=== PATIENT | female | born 1990 | race Caucasian/White ===

== ENCOUNTER 2017-10-05 22:00 | Emergency (ER) | payer MEDICAID, OTHER ==
--- NOTE | 2017-10-05 22:17 | EDPHY ---
H & P Stated Complaint: Urine dark in color. Time Seen by Provider: 10/05/17 22:16 HPI/ROS: CHIEF COMPLAINT: Discolored urine, pruritus HISTORY OF PRESENT ILLNESS: Previously healthy 27-year-old female noted her urine to change colors thumb 3 days ago. Home treatment consisted of drinking extra fluids to dilute things out however he continued remained odd colored. She described as a at [place] to brown colored. There has been no dysuria or frequency or pyuria. She also reports no back pain or flank pain or fevers or chills. No trauma. She has not been taking any medications such as peridium or azo. Furthermore this has never occurred to her before. As to the anemia which potentially uncovered she has never had problems related to that. She has also noted no easy bruising or bleeding. Two nights ago she felt so uncomfortable due to itching that she has take some Benadryl. She reports no overdose of Tylenol. She has had no exposure to potentially hepatotoxic drugs such as phenothiazines, barbiturates, tetracycline, INH, or narcotics. No antecedent sore throat or episode of mono or strep throat. She believes that she did receive her usual childhood vaccines as a preschooler however does not believe that she got the vaccination so that she would get as a middle Schooler due to lack of funds. Thus she would like received all of her 3 hepatitis-B vaccinations as an and toddler. REVIEW OF SYSTEMS: Constitutional: No fever, no chills. Eyes: No discharge, no jaundice. ENT: No sore throat. Cardiovascular: No chest pain, no palpitations. Respiratory: No cough, shortness of breath, or wheezing. Gastrointestinal: No nausea vomiting or diarrhea. No abdominal pain. Genitourinary: No hematuria or frequency. Musculoskeletal: No back pain. Skin: No rashes. Neurological: No headache. 10 point ROS otherwise negative Source: Patient Exam Limitations: No limitations - Personal History LMP (Females 10-55): Extended Cycle BCP/Inj - Medical/Surgical History Hx Asthma: No Hx Chronic Respiratory Disease: No Hx Diabetes: No Hx Cardiac Disease: No Hx Renal Disease: No Hx Cirrhosis: No Hx Alcoholism: No Hx HIV/AIDS: No Hx Splenectomy or Spleen Trauma: No - Family History Significant Family History: No pertinent family hx - Social History Smoking Status: Never smoked Alcohol Use: None Drug Use: None - Physical Exam Exam: General Appearance: Alert, no distress. Afebrile. Normal phonation. No respiratory distress. Eyes: Pupils equal and round no pallor or injection. No icterus ENT, Mouth: Mucous membranes moist Pharynx without erythema or exudate. TM Clear. Neck: No adenopathy. Supple. No JVD. Trachea in midline. No posterior adenopathy. Chest wall: Nontender to palpation. No crepitus. Cardiovascular: Regular rate and rhythm. Abdomen: Soft and nontender, no masses, bowel sounds normal. There is no hepatomegaly. Neurological: Ox3. No motor weakness. Sensation intact. Gait nl. Skin: Warm and dry, no rashes. Musculoskeletal: No joint swelling. Extremities: No edema. Homans sign negative. No cords. Psychiatric: Normal affect. Patient is oriented X 3. There is no agitation Constitutional: Initial Vital Signs Temperature (C) 37 C 10/05/17 22:20 Heart Rate 92 10/05/17 22:20 Respiratory Rate 14 10/05/17 22:20 Blood Pressure 133/78 H 10/05/17 22:20 O2 Sat (%) 96 10/05/17 22:20 O2 Delivery Mode Room Air Allergies/Adverse Reactions: Penicillins Allergy (Verified 10/05/17 22:21) Home Medications: Medication Instructions Recorded Nexplanon 10/05/17 Medical Decision Making ED Course/Re-evaluation: I went ahead and examined her urine myself in the laboratory. It is of a pinkish, brownish color - though clear Laboratory evaluation revealed the following: Anemia, normochromic, normocytic ALT 5 times normal at 252 AST somewhat elevated but not more so than the ALT Alkaline phosphatase elevated, though bilirubin is normal I went over the potential causes of a hepatocellular process / toxic / infectious process with her. She noted the following: No over doses of Tylenol No exposure to illicit substances None of the medications as outlined in the HPI No known exposure to mono, or mono like illness No recent strep No ingestion of vitamins or herbal supplements Further diagnostic evaluation initiated to include: Haptoglobin to check for hemolysis in view of the anemia = pending Reticulocyte count in view of the anemia = pending [facility] testing = this was negative Hepatitis panel = pending Differential Diagnosis: Diagnostic considerations include, but are not limited to, the following: Hepatitis, infectious mononucleosis, glomerulonephritis, idiopathic pruritus, UTI. - Data Points Laboratory Results: Laboratory Results 10/05/17 22:40 10/05/17 22:40 10/06/17 10/06/17 10/05/17 00:25 00:25 23:55 WBC RBC Hgb Hct MCV MCH MCHC RDW Plt Count MPV Neut % (Auto) Lymph % (Auto) [facility] % (Auto) Eos % (Auto) Baso % (Auto) Nucleat RBC Rel Count Absolute Neuts (auto) Absolute Lymphs (auto) Absolute Monos (auto) Absolute Eos (auto) Absolute Basos (auto) Absolute Nucleated RBC Immature Gran % Immature Gran # Absolute Retic Percent Retic Corrected Retic Count Haptoglobin Pending Sodium Potassium Chloride Carbon Dioxide Anion Gap BUN Creatinine Estimated GFR Glucose Calcium Total Bilirubin Conjugated Bilirubin Unconjugated Bilirubin AST ALT Alkaline Phosphatase Creatine Kinase Total Protein Albumin Urine Color YELLOW Urine Appearance CLEAR Urine pH 7.0 (5.0-7.5) Ur Specific [place] <= 1.005 (1.002-1.030) Urine Protein NEGATIVE (NEGATIVE) Urine Ketones NEGATIVE (NEGATIVE) Urine Blood NEGATIVE (NEGATIVE) Urine Nitrate NEGATIVE (NEGATIVE) Urine Bilirubin NEGATIVE (NEGATIVE) Urine Urobilinogen 0.2 EU EU (0.2-1.0) Ur Leukocyte Esterase NEGATIVE (NEGATIVE) Urine RBC Urine WBC Ur Epithelial Cells Urine Bacteria Urine Mucus Urine Glucose NEGATIVE (NEGATIVE) Hepatitis A IgM Ab Pending Hep Bs Antigen Pending Hep B Core IgM Ab Pending Hepatitis C Antibody Pending Monoscreen NEGATIVE (NEGATIVE) 10/05/17 10/05/17 10/05/17 22:40 22:40 22:40 WBC 4.92 10^3/uL 10^3/uL (3.80-9.50) RBC 3.87 10^6/uL L 10^6/uL (4.18-5.33) Hgb 11.6 g/dL L g/dL (12.6-16.3) Hct Pending 32.7 % L % (38.0-47.0) MCV 84.5 fL fL (81.5-99.8) MCH 30.0 pg pg (27.9-34.1) MCHC 35.5 g/dL g/dL (32.4-36.7) RDW 11.4 % L % (11.5-15.2) Plt Count 178 10^3/uL 10^3/uL (150-400) MPV 9.8 fL fL (8.7-11.7) Neut % (Auto) 51.3 % % (39.3-74.2) Lymph % (Auto) 36.8 % % (15.0-45.0) [facility] % (Auto) 8.9 % % (4.5-13.0) Eos % (Auto) 2.4 % % (0.6-7.6) Baso % (Auto) 0.4 % % (0.3-1.7) Nucleat RBC Rel Count 0.0 % % (0.0-0.2) Absolute Neuts (auto) 2.52 10^3/uL 10^3/uL (1.70-6.50) Absolute Lymphs (auto) 1.81 10^3/uL 10^3/uL (1.00-3.00) Absolute Monos (auto) 0.44 10^3/uL 10^3/uL (0.30-0.80) Absolute Eos (auto) 0.12 10^3/uL 10^3/uL (0.03-0.40) Absolute Basos (auto) 0.02 10^3/uL 10^3/uL (0.02-0.10) Absolute Nucleated RBC 0.00 10^3/uL 10^3/uL (0-0.01) Immature Gran % 0.2 % % (0.0-1.1) Immature Gran # 0.01 10^3/uL 10^3/uL (0.00-0.10) Absolute Retic Pending Percent Retic Pending Corrected Retic Count Pending Haptoglobin Sodium 140 mEq/L mEq/L (134-144) Potassium 3.8 mEq/L mEq/L (3.5-5.2) Chloride 98 mEq/L mEq/L (97-110) Carbon Dioxide 27 mEq/l mEq/l (22-31) Anion Gap 15 mEq/L mEq/L (8-16) BUN 12 mg/dL mg/dL (7-23) Creatinine 1.0 mg/dL mg/dL (0.6-1.0) Estimated GFR > 60 Glucose 96 mg/dL mg/dL (70-100) Calcium 9.0 mg/dL mg/dL (8.5-10.4) Total Bilirubin 1.0 mg/dL mg/dL (0.1-1.4) Conjugated Bilirubin 0.6 mg/dL H mg/dL (0.0-0.5) Unconjugated Bilirubin 0.4 mg/dL mg/dL (0.0-1.1) AST 147 IU/L H IU/L (14-46) ALT 262 IU/L H IU/L (9-52) Alkaline Phosphatase 413 IU/L H IU/L (38-126) Creatine Kinase 36 IU/L IU/L (0-156) Total Protein 6.5 g/dL g/dL (6.3-8.2) Albumin 3.5 g/dL g/dL (3.5-5.0) Urine Color Urine Appearance Urine pH Ur Specific [place] Urine Protein Urine Ketones Urine Blood Urine Nitrate Urine Bilirubin Urine Urobilinogen Ur Leukocyte Esterase Urine RBC Urine WBC Ur Epithelial Cells Urine Bacteria Urine Mucus Urine Glucose Hepatitis A IgM Ab Hep Bs Antigen Hep B Core IgM Ab Hepatitis C Antibody Monoscreen 10/05/17 22:15 WBC RBC Hgb Hct MCV MCH MCHC RDW Plt Count MPV Neut % (Auto) Lymph % (Auto) [facility] % (Auto) Eos % (Auto) Baso % (Auto) Nucleat RBC Rel Count Absolute Neuts (auto) Absolute Lymphs (auto) Absolute Monos (auto) Absolute Eos (auto) Absolute Basos (auto) Absolute Nucleated RBC Immature Gran % Immature Gran # Absolute Retic Percent Retic Corrected Retic Count Haptoglobin Sodium Potassium Chloride Carbon Dioxide Anion Gap BUN Creatinine Estimated GFR Glucose Calcium Total Bilirubin Conjugated Bilirubin Unconjugated Bilirubin AST ALT Alkaline Phosphatase Creatine Kinase Total Protein Albumin Urine Color YELLOW Urine Appearance CLEAR Urine pH 6.0 (5.0-7.5) Ur Specific [place] 1.025 (1.002-1.030) Urine Protein NEGATIVE (NEGATIVE) Urine Ketones NEGATIVE (NEGATIVE) Urine Blood NEGATIVE (NEGATIVE) Urine Nitrate NEGATIVE (NEGATIVE) Urine Bilirubin NEGATIVE (NEGATIVE) Urine Urobilinogen 1.0 EU EU (0.2-1.0) Ur Leukocyte Esterase TRACE H (NEGATIVE) Urine RBC 0-1 /hpf /hpf (0-3) Urine WBC 3-5 /hpf H /hpf (0-3) Ur Epithelial Cells 2+ /lpf H /lpf (NONE-1+) Urine Bacteria 3+ /hpf H /hpf (NONE SEEN) Urine Mucus 3+ /lpf H /lpf (NONE-1+) Urine Glucose NEGATIVE (NEGATIVE) Hepatitis A IgM Ab Hep Bs Antigen Hep B Core IgM Ab Hepatitis C Antibody Monoscreen Departure - Departure Disposition: Home, Routine, Self-Care Clinical Impression: Hepatitis Anemia Qualifiers: Anemia type: unspecified type Qualified Code(s): D64.9 - Anemia, unspecified Condition: Good Instructions: Anemia (ED) Additional Instructions: Do not take any Tylenol Avoid alcohol If She started feeling worse such as jaundice, upper abdominal pain nausea or vomiting then return to the ER for evaluation It is okay to take Benadryl if you have the itching Referrals: ZEINAB RENEE,. [Primary Care Provider] - 2-3 days without fail Bouchra King MD [Medical Doctor] - As per Instructions
[2017-10-05 22:24] VITALS: TEMP 98.6; O2SAT 96
[2017-10-05 22:49] LABS: PLATELET COUNT 178 10^3/uL (150-400)
[2017-10-05 23:04] LABS: CREATINE KINASE 36 IU/L (0-156)
[2017-10-06 00:34] VITALS: BP 112/75; PULSE 84; RESP 16
[2017-10-09 02:05] LABS: HEPATITIS B SURFACE ANTIGEN NEGATIVE (NEGATIVE)
[2017-10-09 02:11] LABS: HEPATITIS A ANTIBODY IGM (BCH) NEGATIVE (NEGATIVE); HEPATITIS B CORE AB IGM NEGATIVE (NEGATIVE)
[2017-10-09 02:23] LABS: HEPATITIS C ANTIBODY TOTAL NEGATIVE (NEGATIVE)
== END 2017-10-06 00:34 | disposition home or self-care (01) ==
LOC: CED 22:00
DX: K75.9 Inflammatory liver disease, unspecified (principal); D64.9 Anemia, unspecified
CPT/HCPCS: 80048-PO; 80076-PO; 81003-PO; 81015-PO; 82550-PO; 83010-90; 85025-PO; 86308-PO; G0472